=== PATIENT | female | born 1990 | race Caucasian/White ===

== ENCOUNTER → 2018-06-20 | Outpatient (CLI) | payer BC ==
--- NOTE | 2018-06-20 16:37 | PCVCIMAG ---
APPROVED REPORT Study performed: 06/20/2018 15:28:48 EXAM: Comprehensive 2D, Doppler, and color-flow Echocardiogram Patient Location: Echo lab Status: routine BSA: 2.41 HR: 67 bpmBP: 140/100 mmHg Rhythm: NSR Other Information Study Quality: Adequate Indications Hypertension/HDD Edema. Hyperlipidemia 2D Dimensions IVSd: 7.76 (7-11mm)LVOT Diam: 20.92 (18-24mm) LVDd: 28.30 mm LVPWs: 25.22 mm PWd: 28.27 (7-11mm)Ascending Ao: 28.59 (22-36mm) LVDs: 43.01 (25-40mm) Left Atrium: 35.02 (27-40mm) Aortic Root: 20.61 mm Volumes Left Atrial Volume (Systole) Single Plane 4CH: 31.99 mLSingle Plane 2CH: 27.15 mL LA ESV Index: 13.00 mL/m2 Aortic Valve AoV Peak Anthony.: 1.41 m/s AO Peak Gr.: 7.99 mmHgLVOT Max P.78 mmHg LVOT Max V: 1.20 m/s LORENA Vmax: 2.92 cm2 Mitral Valve E/A Ratio: 1.2 MV Decel. Time: 216.21 ms MV E Max Anthony.: 0.95 m/s MV A Anthony.: 0.81 m/s IVRT: 103.81 ms TDI E/Lateral E': 9.50E/Medial E': 8.64 Medial E' Anthony.: 0.11 m/s Lateral E' Anthony.: 0.10 m/s Pulmonary Valve PV Peak Gr.: 2.38 mmHg Pulmonary Vein P Vein S: 0.60 m/sP Vein A: 0.28 m/s P Vein D: 0.45 m/sP Vein A Dur.: 72.7 msec P Vein S/D Ratio: 1.33 Left Ventricle The left ventricle is normal size. There is normal LV segmental wall motion. There is normal left ventricular wall thickness. Left ventricular systolic function is normal. The left ventricular ejection fraction is within the normal range. LVEF is 55-60%. The left ventricular diastolic function is normal. Right Ventricle The right ventricle is normal size. The right ventricular systolic function is normal. Atria The left atrium size is normal. Possible atrial septal aneurysm without shunting. The right atrium size is normal. Aortic Valve The aortic valve is normal in structure, trileaflet. No aortic regurgitation is present. There is no aortic valvular stenosis. Mitral Valve The mitral valve is normal in structure. There is no mitral valve regurgitation noted. No evidence of mitral valve stenosis. Tricuspid Valve The tricuspid valve is normal in structure. There is no tricuspid valve regurgitation noted. Pulmonic Valve The pulmonary valve is normal in structure. There is no pulmonic valvular regurgitation. Great Vessels The aortic root is normal in size. IVC is normal in size and collapses with >50% inspiration Pericardium There is no pericardial effusion. <Conclusion> Left ventricular systolic function is normal. There is normal LV segmental wall motion. LVEF is 55-60%. Normal diastolic function The aortic valve is normal in structure, trileaflet. No aortic regurgitation or stenosis. The mitral valve is normal in structure. No mitral valve regurgitation Pulmonary artery pressure could not be reliably ascertained There is no pericardial effusion.
--- NOTE | 2018-06-20 17:17 | PCVCIMAG ---
EXAM: BILATERAL SUPERFICIAL VENOUS DUPLEX INDICATION: Leg pain and swelling. FINDINGS: Right leg: No thrombus in the common femoral, main femoral, or popliteal veins. These veins are compressible. Right Great Saphenous Vein: At the saphenofemoral junction the diameter is 9.8 mm, in the mid thigh it is 4.8 mm, and in the calf it is 4.1 mm. There is not significant venous insufficiency/reflux throughout. Venous insufficiency/reflux duration is 0 seconds. Right Small Saphenous Vein: At the saphenopopliteal junction the diameter is 5.5 mm, and in the calf it is 4.8 mm. There is not significant venous insufficiency/reflux throughout. Venous insufficiency/reflux duration is 0 seconds. There is a cranial extension present. Left leg: No thrombus in the common femoral, main femoral, or popliteal veins. These veins are compressible. Left Great Saphenous Vein: At the saphenofemoral junction the diameter is 8.9 mm, in the mid thigh it is 5.9 mm, and in the calf it is 3.5 mm. There is not significant venous insufficiency/reflux throughout. Venous insufficiency/reflux duration is 0 seconds. Left Small Saphenous Vein: At the saphenopopliteal junction the diameter is 5.1 mm, and in the calf it is 3.1 mm. There is not significant venous insufficiency/reflux throughout. Venous insufficiency/reflux duration is 0.3 seconds. There is a cranial extension present. IMPRESSION: Right Great Saphenous Vein: No significant venous insufficiency/reflux is present as noted above. Right Small Saphenous Vein: No significant venous insufficiency/reflux is present as noted above. Left Great Saphenous Vein: No significant venous insufficiency/reflux is present as noted above. Left Small Saphenous Vein: No significant venous insufficiency/reflux is present as noted above. LOC:[id number]
== END | disposition home or self-care (01) ==
LOC: PCVCIMAG 14:29
PROVIDERS: ATTEND Internal Medicine
DX: R60.0 Localized edema (principal); I10 Essential (primary) hypertension; R94.5 Abnormal results of liver function studies
CPT/HCPCS: 93306; 93970